=== PATIENT | female | born 1975 | race Caucasian/White ===

== ENCOUNTER 2020-08-10 06:48 | Day surgery (SDC) | payer BC, OTHER ==
[~2020-08-10 06:48] MED LIST: Lactated Ringers 1,000 ML IV SCH; Sodium Chloride 0.9% 10 ML Syringe FLUSH PRN
[2020-08-10] MEDS ORDERED: Propofol 200 MG/20 ML SDV IV ONE (06:49)
--- NOTE | 2020-08-10 08:34 | PCM.HPR ---
H & P Addendum review - H & P Addendum Review Date of Original H & P: 08/02/20 Date Reviewed: 08/10/20 Time Reviewed: 08:00 Patient was Examined: No Changes
--- NOTE | 2020-08-10 08:36 | PCM.OPNOTE ---
- General Post-Op/Procedure Note Date of Surgery/Procedure: 08/10/20 Operative Procedure(s): EGD with Bx Findings: Pyloric Channel Ulcer Pre Op Diagnosis: Epigastric Kerns Post-Op Diagnosis: Same Anesthesia Technique: REE Primary Surgeon: Jacob Torrez Anesthesia Provider: Benigno Craven Pathology: Antrum and body Bx's Complications: None Condition: Good
[2020-08-10 09:58] VITALS: BP 124/70; PULSE 64
--- NOTE | 2020-08-10 10:44 | OR ---
DATE OF OPERATION: 08/10/2020 SURGEON: Jacob Torrez MD PREOPERATIVE DIAGNOSIS: Epigastric abdominal pain. POSTOPERATIVE DIAGNOSIS: Pyloric channel ulcer. PROCEDURE: Esophagogastroduodenoscopy with biopsy. ANESTHESIA: MAC. DESCRIPTION OF PROCEDURE: The patient was brought to the procedure room, where she was placed on her left side and IV sedation administered. Oral bite block was placed and the upper endoscope advanced into the esophagus under direct vision without difficulty. Vocal cords were viewed and were normal. The scope was advanced to the 2nd portion of the duodenum. Duodenum appears normal. The pyloric channel has a 1 cm ulcer with no visible vessel for clot. This was the obvious source of her pain. Photographs were taken. I did take biopsies from her antrum and body as her body also shows some evidence of chronic inflammation. Retroflexion was normal. Squamocolumnar junction appears normal. I did not see any evidence of reflux esophagitis. No hiatal hernia is present. Air was removed from the stomach and the scope withdrawn through the remaining esophagus, which appears normal. The patient tolerated the procedure well and returned to Recovery in stable condition. FOLLOWUP: The patient will remain on her Pepcid and omeprazole, and follow up with Celia Santamaria next week for review of biopsies. If Helicobacter pylori is present, this should be treated. The patient will also be encouraged to quit smoking. /[id number] SHALINI/CHRISTOPHER
== END 2020-08-10 09:15 | disposition home or self-care (01) ==
LOC: FB.SDS 06:48
PROVIDERS: ATTEND Surgery
DX: K29.50 Unspecified chronic gastritis without bleeding (principal); K29.90 Gastroduodenitis, unspecified, without bleeding; K25.9 Gastric ulcer, unspecified as acute or chronic, without hemorrhage or perforation; B96.81 Helicobacter pylori [H. pylori] as the cause of diseases classified elsewhere; L30.9 Dermatitis, unspecified; I10 Essential (primary) hypertension; E03.9 Hypothyroidism, unspecified; E78.1 Pure hyperglyceridemia; E53.8 Deficiency of other specified B group vitamins; E78.5 Hyperlipidemia, unspecified; J44.9 Chronic obstructive pulmonary disease, unspecified; F17.210 Nicotine dependence, cigarettes, uncomplicated; Z79.1 Long term (current) use of non-steroidal anti-inflammatories (NSAID); Z79.899 Other long term (current) drug therapy; Z68.30 Body mass index [BMI] 30.0-30.9, adult; Z88.1 Allergy status to other antibiotic agents; Z88.5 Allergy status to narcotic agent; Z91.040 Latex allergy status; Z98.890 Other specified postprocedural states
CPT/HCPCS: 00731-QZ; 88305; 88342; J2704; J7120

== ENCOUNTER 2020-11-03 16:51 | Emergency (ER) | payer OTHER ==
[2020-11-03] MEDS ORDERED: Ketorolac 30 MG/ML SDV IVPUSH STA (17:23)
[2020-11-03] MEDS ORDERED: Ondansetron 4 MG/2 ML SDV IVPUSH ONE (17:24)
[2020-11-03] MEDS ORDERED: Sodium Chloride 0.9% 1,000 ML IV SCH (17:30)
[2020-11-03] MEDS ORDERED: Iopamidol 755 Mg/ML 100 ML Bottle IV ONE (17:45)
--- NOTE | 2020-11-03 18:46 | EDM.PDOC ---
ED HPI GENERAL MEDICAL PROBLEM - General Stated Complaint: SENT FROM CLINIC Time Seen by Provider: 11/03/20 17:45 Source of Information: Reports: Patient History Limitations: Reports: No Limitations - History of Present Illness INITIAL COMMENTS - FREE TEXT/NARRATIVE: Patient presented to the Ed from the ED because of left flank pain and LLQ pain. the pain is sharp,8/10. She also c/o nausea but o vomiting. There is no diarrhea or constipation. there is no fever, chills, or urinary symptoms. - Related Data Allergies Allergy/AdvReac Type Severity Reaction Status Date / Time acetaminophen Allergy Bronchospas Verified 08/10/20 07:45 [From Benadryl ms Pthetdd-Iyubc-[id number]] diphenhydramine Allergy Bronchospas Verified 08/10/20 07:45 [From Benadryl ms Ovsgesp-Kznuk-Vdrbqmf] erythromycin base Allergy Other Verified 08/10/20 07:45 [Erythromycin Base] latex Allergy Rash Verified 08/10/20 07:45 morphine Allergy Seizure Verified 08/10/20 07:45 phenylephrine Allergy Bronchospas Verified 08/10/20 07:45 [From Benadryl ms Vjcewjz-Owzaf-Uyrlwln] pseudoephedrine Allergy Bronchospas Verified 08/10/20 07:45 [From Benadryl ms Xdvoftb-Dltab-Drwzypc] Home Meds: Home Meds Losartan/Hydrochlorothiazide [Hyzaar 50-12.5 Tablet] 2 each PO DAILY 08/18/13 [History] Albuterol/Ipratropium [DuoNeb 3.0-0.5 MG/3 ML] 1 inhalation INH Q6H PRN 04/11/14 [History] Albuterol [Ventolin HFA] 2 puff INH Q4HR PRN 05/21/14 [History] Montelukast [Singulair] 10 mg PO BEDTIME 05/21/14 [History] Escitalopram [Lexapro] 20 mg PO DAILY 08/09/20 [History] Famotidine [Pepcid] 40 mg PO BEDTIME 08/09/20 [History] Fenofibrate Nanocrystallized [Tricor] 145 mg PO DAILY 08/09/20 [History] Furosemide [Lasix] 20 mg PO DAILY 08/09/20 [History] Gabapentin [Neurontin] 800 mg PO BEDTIME 08/09/20 [History] Levothyroxine 275 mcg PO ACBREAKFAST 08/09/20 [History] Meloxicam [Mobic] 15 mg PO DAILY PRN 08/09/20 [History] Methotrexate 15 mg PO MO 08/09/20 [History] Omeprazole Magnesium [Prilosec Otc] 20 mg PO BID 08/09/20 [History] Venlafaxine [Effexor XR] 150 mg PO DAILY 08/09/20 [History] estradioL [Estradiol] 1 mg PO DAILY 08/09/20 [History] Past Medical History - Past Health History Medical/Surgical History: Denies Medical/Surgical History HEENT History: Reports: Impaired Vision Cardiovascular History: Reports: High Cholesterol, Hypertension Respiratory History: Reports: Asthma, COPD Gastrointestinal History: Reports: None Genitourinary History: Reports: None BAND CUTTER History: Reports: None Musculoskeletal History: Reports: Back Pain, Chronic, Other (See Below) Other Musculoskeletal History: BILAT CARPAL TUNNEL SYNDROME. CUBITAL TUNNEL SYNDROME Neurological History: Reports: Migraines Psychiatric History: Reports: Anxiety, Depression Endocrine/Metabolic History: Reports: Hypothyroidism, Obesity/BMI 30+, Other (See Below) Other Endocrine/Metabolic History: HASHIMOTOS'S THYROIDITIS Hematologic History: Reports: None Immunologic History: Reports: None Oncologic (Cancer) History: Reports: None Dermatologic History: Reports: Eczema - Infectious Disease History Infectious Disease History: Reports: MRSA - Past Surgical History Head Surgeries/Procedures: Reports: None HEENT Surgical History: Reports: None Respiratory Surgical History: Reports: None GI Surgical History: Reports: None Female Surgical History: Reports: None Endocrine Surgical History: Reports: None Neurological Surgical History: Reports: None Oncologic Surgical History: Reports: None Dermatological Surgical History: Reports: None Social & Family History - Living Situation & Occupation Living situation: ED ROS GENERAL - Review of Systems Review Of Systems: See Below Constitutional: Reports: No Symptoms HEENT: Reports: No Symptoms Respiratory: Reports: No Symptoms Cardiovascular: Reports: No Symptoms Endocrine: Reports: No Symptoms GI/Abdominal: Reports: No Symptoms : Reports: No Symptoms Musculoskeletal: Reports: No Symptoms Skin: Reports: No Symptoms Neurological: Reports: No Symptoms Psychiatric: Reports: No Symptoms Hematologic/Lymphatic: Reports: No Symptoms ED EXAM, GI/ABD - Physical Exam Exam: See Below Exam Limited By: No Limitations General Appearance: Alert, No Apparent Distress Ears: Normal External Exam, Normal Canal Nose: Normal Inspection, Normal Mucosa Throat/Mouth: Normal Inspection, Normal Lips, Normal Teeth Head: Atraumatic, Normocephalic Neck: Normal Inspection, Supple, Non-Tender, Full Range of Motion Respiratory/Chest: No Respiratory Distress, Lungs Clear, Normal Breath Sounds, No Accessory Muscle Use Cardiovascular: Normal Peripheral Pulses, Regular Rate, Rhythm, No Edema, No Gallop, No JVD, No Murmur GI/Abdominal Exam: Normal Bowel Sounds, Soft, Other (LLQ T) Extremities: Normal Inspection, Normal Range of Motion Neurological: Alert, Oriented, CN II-XII Intact, Normal Reflexes, No Motor/Sensory Deficits Course - Vital Signs Text/Narrative:: Lab/CT abd-pelvis result was reviewed and discussed with patient NS 1 L bolus Zofran 4 mg IV x1 Toradol 30 mg IV x1 - Orders/Labs/Meds Orders: Active Orders 24 hr Category Date Time Status Abdomen Pelvis w Cont [CT] Stat Exams 11/03/20 17:21 Taken Sodium Chloride 0.9% [Normal Saline] 1,000 ml Med 11/03/20 17:30 Active IV ASDIRECTED Medication Orders Sodium Chloride (Normal Saline) 1,000 mls @ 999 mls/hr IV ASDIRECTED DOREEN Last Admin: 11/03/20 17:40 Dose: 999 mls/hr Documented by: YANI Labs: Laboratory Tests 11/03/20 11/03/20 11/03/20 Range/Units 17:00 17:00 17:40 WBC 8.7 (3.0-10.3) x10-3/uL RBC 4.71 (3.60-5.20) x10(6)uL Hgb 14.1 (11.4-15.5) g/dL Hct 40.6 (34.2-48.2) % MCV 86.1 (76.7-100.5) fL MCH 29.8 (23.9-33.9) pg MCHC 34.7 (31.9-34.8) g/dL RDW 13.9 (12.3-16.5) % Plt Count 199 (151-488) x10(3)uL MPV 11.3 (7.1-12.4) fL Neut % (Auto) 60.7 (30.8-76.2) % Lymph % (Auto) 27.6 (18.4-52.1) % [place] % (Auto) 7.6 (4.4-15.7) % Eos % (Auto) 3.1 (0.6-8.1) % Baso % (Auto) 1.0 (0.2-1.5) % Neut # (Auto) 5.3 (1.5-6.3) x10-3/uL Lymph # (Auto) 2.4 (1.0-4.4) x10-3/uL [place] # (Auto) 0.7 (0.3-1.0) x10-3/uL Eos # (Auto) 0.3 (0.0-0.8) x10-3/uL Baso # (Auto) 0.1 (0.0-0.1) x10-3/uL Sodium (135-145) mmol/L Potassium (3.5-5.3) mmol/L Chloride (100-110) mmol/L Carbon Dioxide (21-32) mmol/L BUN (7-18) mg/dL Creatinine (0.55-1.02) mg/dL Est Cr Clr Drug Dosing Estimated GFR (MDRD) (>60) BUN/Creatinine Ratio (9-20) Glucose (80-116) mg/dL Calcium (8.6-10.2) mg/dL Total Bilirubin (0.1-1.3) mg/dL AST (5-25) IU/L ALT (12-36) U/L Alkaline Phosphatase (56-112) IU/L Total Protein (6.0-8.0) g/dL Albumin (3.5-5.2) g/dL Globulin g/dL Albumin/Globulin Ratio Amylase (25-115) U/L Lipase (73-393) U/L Urine Color Yellow (YELLOW) Urine Appearance Clear (CLEAR) Urine pH 7.0 H (5.0-6.5) Ur Specific Alexis 1.010 (1.010-1.025) Urine Protein Negative (NEGATIVE) mg/dL Urine Glucose (UA) Normal (NORMAL) mg/dL Urine Ketones Negative (NEGATIVE) mg/dL Urine Occult Blood Negative (NEGATIVE) Urine Nitrite Negative (NEGATIVE) Urine Bilirubin Negative (NEGATIVE) Urine Urobilinogen Normal (NEGATIVE) mg/dL Ur Leukocyte Esterase Negative (NEGATIVE) Urine RBC 0-5 (0-5) Urine WBC 0-5 (0-5) Ur Squamous Epith Cells Few H (NS,R,O) Urine Bacteria Few H (NS) Urine HCG, Qual Negative (NEGATIVE) 11/03/20 11/03/20 Range/Units 17:40 17:40 WBC (3.0-10.3) x10-3/uL RBC (3.60-5.20) x10(6)uL Hgb (11.4-15.5) g/dL Hct (34.2-48.2) % MCV (76.7-100.5) fL MCH (23.9-33.9) pg MCHC (31.9-34.8) g/dL RDW (12.3-16.5) % Plt Count (151-488) x10(3)uL MPV (7.1-12.4) fL Neut % (Auto) (30.8-76.2) % Lymph % (Auto) (18.4-52.1) % [place] % (Auto) (4.4-15.7) % Eos % (Auto) (0.6-8.1) % Baso % (Auto) (0.2-1.5) % Neut # (Auto) (1.5-6.3) x10-3/uL Lymph # (Auto) (1.0-4.4) x10-3/uL [place] # (Auto) (0.3-1.0) x10-3/uL Eos # (Auto) (0.0-0.8) x10-3/uL Baso # (Auto) (0.0-0.1) x10-3/uL Sodium 141 (135-145) mmol/L Potassium 3.4 L (3.5-5.3) mmol/L Chloride 101 (100-110) mmol/L Carbon Dioxide 29 (21-32) mmol/L BUN 13 (7-18) mg/dL Creatinine 0.8 (0.55-1.02) mg/dL Est Cr Clr Drug Dosing TNP Estimated GFR (MDRD) > 60 (>60) BUN/Creatinine Ratio 16.3 (9-20) Glucose 103 (80-116) mg/dL Calcium 9.0 (8.6-10.2) mg/dL Total Bilirubin 0.3 (0.1-1.3) mg/dL AST 23 (5-25) IU/L ALT 28 (12-36) U/L Alkaline Phosphatase 100 (56-112) IU/L Total Protein 7.0 (6.0-8.0) g/dL Albumin 3.4 L (3.5-5.2) g/dL Globulin 3.6 g/dL Albumin/Globulin Ratio 0.9 Amylase 48 (25-115) U/L Lipase 266 (73-393) U/L Urine Color (YELLOW) Urine Appearance (CLEAR) Urine pH (5.0-6.5) Ur Specific Alexis (1.010-1.025) Urine Protein (NEGATIVE) mg/dL Urine Glucose (UA) (NORMAL) mg/dL Urine Ketones (NEGATIVE) mg/dL Urine Occult Blood (NEGATIVE) Urine Nitrite (NEGATIVE) Urine Bilirubin (NEGATIVE) Urine Urobilinogen (NEGATIVE) mg/dL Ur Leukocyte Esterase (NEGATIVE) Urine RBC (0-5) Urine WBC (0-5) Ur Squamous Epith Cells (NS,R,O) Urine Bacteria (NS) Urine HCG, Qual (NEGATIVE) Meds: Medications Generic Name Dose Route Start Last Admin Trade Name Freq PRN Reason Stop Dose Admin Sodium Chloride 1,000 mls @ 999 mls/hr 11/03/20 17:30 11/03/20 17:40 Normal Saline IV 999 mls/hr ASDIRECTED DOREEN Administration Discontinued Medications Generic Name Dose Route Start Last Admin Trade Name Freq PRN Reason Stop Dose Admin Iopamidol 100 ml 11/03/20 17:45 11/03/20 18:10 Iopamidol 755 Mg/Ml 100 Ml Bottle IV 11/03/20 17:46 100 ml . DIRECTED ONE Administration Ketorolac Tromethamine 30 mg 11/03/20 17:23 11/03/20 17:55 Ketorolac 30 Mg/Ml Sdv IVPUSH 11/03/20 17:24 30 mg NOW STA Administration Ondansetron HCl 4 mg 11/03/20 17:24 11/03/20 17:48 Ondansetron 4 Mg/2 Ml Sdv IVPUSH 11/03/20 17:25 4 mg ONETIME ONE Administration Departure - Departure Time of Disposition: 18:45 Disposition: Home, Self-Care 01 Condition: Good Clinical Impression: Abdominal pain - Discharge Information Referrals: Celia Santamaria CHIEF KNOWLEDGE OFFICER [Primary Care Provider] - Additional Instructions: Please read discharge instructions on abdominal pain [place] diet Take ibuprofen 800 mg and tylenol 1000 mg every 8 hours as needed for pain Follow up as needed - My Orders Last 24 Hours: My Active Orders 11/03/20 17:21 Abdomen Pelvis w Cont [CT] Stat 11/03/20 17:30 Sodium Chloride 0.9% [Normal Saline] 1,000 ml IV ASDIRECTED - Assessment/Plan Last 24 Hours: My Active Orders 11/03/20 17:21 Abdomen Pelvis w Cont [CT] Stat 11/03/20 17:30 Sodium Chloride 0.9% [Normal Saline] 1,000 ml IV ASDIRECTED
--- NOTE | 2020-11-03 19:13 | CT ---
INDICATION: Left lower quadrant/left flank pain. CT ABDOMEN AND PELVIS WITH CONTRAST: Spiral 3.75 mm axial sections were obtained through the abdomen and pelvis with 100 mL Isovue-370 at 2 mL per second with sagittal and coronal reconstructions 11/03/20 and compared with 05/22/16. Total exam DLP was 1303.41 mGy-cm. The lower lung bradford and pleural spaces visualized reveal some minimal scarring at the lung bases with no active infiltrate or effusion suggested. There are some calcifications in the left lobe of the liver and to a very minimal extent in the right lobe which may be on the basis of previous histoplasmosis. The liver was otherwise unremarkable. The gallbladder is absent with clips in the gallbladder bed and cystic duct area, compatible with cholecystectomy. The common bile duct was normal in caliber. No biliary tree dilatation was seen. The pancreas appeared normal. The spleen and adrenal glands appeared normal. The kidneys appeared normal. No obstructive uropathy was suggested. There is some calcification noted in the splenic artery and the aorta as well as the iliac arteries. Retroperitoneal lymphadenopathy is mild and nonspecific, as previously. No retroperitoneal mass was seen. The appendix appeared normal, visualized on axial images 76-91. No evidence of free air or bowel obstruction was identified. No specific gastric abnormality was identified. There appears to be some thickening of the wall of the sigmoid colon which may be simply due to contraction. A mild degree of colitis is difficult to exclude with this appearance however. No definite diverticula were present. The uterus is absent compatible with history of its removal. The urinary bladder appeared grossly normal. No additional organomegaly, mass lesions or free fluid collections were identified in the abdomen or pelvis. A mild dextroconcave scoliosis of the lower middle lumbar spine was noted, similar to the previous examination. There appears to be very minimal loss of disk space at L4-5 which may represent degenerative disk disease and should be correlated clinically. IMPRESSION: 1. 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 2. Suggestion of some thickening of the wall of the sigmoid colon could be due to contraction or possibly inflammatory disease process. 3. Normal-appearing appendix. 4. Posthysterectomy and postcholecystectomy. 5. No specific etiology identified for patient's left flank pain. 6. Scoliosis and probable disk disease L4-5. 7. ASD. Report was called Dr. Lara at 1835 hours 11/03/20. [facility]
[2020-11-03 21:03] VITALS: BP 132/74; PULSE 78
== END 2020-11-03 19:10 | disposition home or self-care (01) ==
LOC: FB.ED 16:51
DX: R10.32 Left lower quadrant pain (principal); E78.00 Pure hypercholesterolemia, unspecified; E03.9 Hypothyroidism, unspecified; I10 Essential (primary) hypertension; J44.9 Chronic obstructive pulmonary disease, unspecified; E66.9 Obesity, unspecified; Z91.040 Latex allergy status; Z88.6 Allergy status to analgesic agent; Z88.1 Allergy status to other antibiotic agents; Z68.31 Body mass index [BMI] 31.0-31.9, adult
CPT/HCPCS: 74177; 80053; 81001; 81025; 82150; 83690; 85025; 96374; 96375; 99284; J1885; J2405; J7030; Q9967